=== PATIENT | male | born 1940 | race Caucasian/White ===

== ENCOUNTER 2017-11-04 09:10 | Day surgery (SDC) | payer MEDICARE, OTHER ==
[~2017-11-04] VITALS: Ht 175.3 cm; Wt 91.6 kg
[~2017-11-04 09:10] MED LIST: ALLOPURINOL300 MG PO; ASPIR-LOW81 MG PO; COENZYME Q10100 MG PO; FLOMAX0.4 MG PO; LOSARTAN-HCTZ1 EAC2 PO; LOVASTATIN40 MG PO; NIACIN50 MG PO; OMEPRAZOLE40 MG PO; SUPER B COMPLE150 MG PO; VITAMIN D32000 UNI1 PO
== END 2017-11-04 11:31 | disposition home or self-care (01) ==
LOC: OPS 09:10 → DS 10:15 → OPS 11:31
PROVIDERS: Ophthalmology
PROC: 08RK3JZ Replacement of Left Lens with Synthetic Substitute, Percutaneous Approach (ICD-10-PCS; principal; 2017-11-04 10:15)
DX: H25.812 Combined forms of age-related cataract, left eye (principal); E78.00 Pure hypercholesterolemia, unspecified; K21.9 Gastro-esophageal reflux disease without esophagitis; M19.90 Unspecified osteoarthritis, unspecified site; G47.30 Sleep apnea, unspecified; Z95.5 Presence of coronary angioplasty implant and graft; Z79.899 Other long term (current) drug therapy; Z87.891 Personal history of nicotine dependence; Z98.890 Other specified postprocedural states
CPT/HCPCS: 00140; J2250

== ENCOUNTER 2018-03-05 06:57 | Day surgery (SDC) | payer MEDICARE, OTHER ==
[~2018-03-05] VITALS: Ht 175.3 cm; Wt 91.6 kg
== END 2018-03-05 09:03 | disposition home or self-care (01) ==
LOC: DS 06:57 → OPS 06:57 → DS 08:15 → OPS 09:03
PROVIDERS: Ophthalmology
PROC: 08RJ3JZ Replacement of Right Lens with Synthetic Substitute, Percutaneous Approach (ICD-10-PCS; principal; 2018-03-05 08:15)
DX: H25.811 Combined forms of age-related cataract, right eye (principal); G47.30 Sleep apnea, unspecified; M19.90 Unspecified osteoarthritis, unspecified site; K21.9 Gastro-esophageal reflux disease without esophagitis; E78.00 Pure hypercholesterolemia, unspecified; I10 Essential (primary) hypertension; Z95.1 Presence of aortocoronary bypass graft; Z87.891 Personal history of nicotine dependence; Z79.82 Long term (current) use of aspirin; Z79.899 Other long term (current) drug therapy; Z99.89 Dependence on other enabling machines and devices
CPT/HCPCS: J2250